=== PATIENT | female | born 1945 | race Caucasian/White ===

== ENCOUNTER → 2016-04-21 | Outpatient (CLI) | payer OTHER ==
[~2016-04-21] MED LIST: FISH OIL1000 M1 PO; LAMOTRIGINE100 MG PO; MULTIVITAMIN1 TAB PO; OCUVITE PO; OXYBUTYNIN CHLOR5 MG PO; POTASSIUM CHLO10 ME2 PO; RANITIDINE HCL150 MG PO; STOOL SOFTENER100 M1 PO; TEGRETOL200 MG PO; TYLENOL ARTHRI650 MG PO; VITAMIN C500 M1 PO; VITAMIN D-31000 UNIT PO
--- NOTE | 2016-04-21 14:05 | DIAGNOSTIC IMAGING REPORT ---
PROCEDURE: MG BILATERAL SCREENING W/CAD INDICATION: SCREENING TECHNIQUE: Bilateral CC and MLO digital views. COMPARISON: Compared to 04/16/2015, 04/12/2014, and 04/06/2013. FINDINGS: Computer-aided detection applied. Mildly dense and nodular with scattered dystrophic calcifications. No change. IMPRESSION: 1. Negative mammogram. RESULT CODE: 1- Negative. A. A negative report should not delay biopsy if a dominant or clinically suspicious mass is present. 10-15% of cancers are not identified by x-ray. B. A negative report may reinforce clinical impression. C. Adenosis and dense breasts may obscure an underlying neoplasm. D. False positive reports average 6-10%. E.. A yearly screening mammogram is recommended. A reminder letter will be scheduled.
== END ==
LOC: MAM SRH 10:49
DX: Z12.31 Encounter for screening mammogram for malignant neoplasm of breast (principal)